=== PATIENT | male | born 2000 | race African-American/Black ===

== ENCOUNTER 2019-01-05 21:34 | Emergency (ER) | payer OTHER ==
[~2019-01-05] VITALS: Ht 190.5 cm; Wt 131.5 kg
[2019-01-05] MEDS ORDERED: NAPROSYN500 MG PO (22:38)
[2019-01-05 23:09] VITALS: BP 162/106
== END 2019-01-05 23:10 | disposition home or self-care (01) ==
LOC: ER 21:34
DX: S60.131A Contusion of right middle finger with damage to nail, initial encounter (principal); S67.192A Crushing injury of right middle finger, initial encounter; I10 Essential (primary) hypertension; Z88.0 Allergy status to penicillin; W22.8XXA Striking against or struck by other objects, initial encounter; Y93.89 Activity, other specified; Y92.89 Other specified places as the place of occurrence of the external cause; Y99.8 Other external cause status